=== PATIENT | female | born 2000 | race Caucasian/White ===

== ENCOUNTER 2022-03-24 15:27 | Emergency (ER) | payer BC, OTHER ==
[2022-03-24] MEDS ORDERED: morphine INJ 10 MG/ML 1ML (SYR OR VIAL) IM STA (15:35)
[2022-03-24] MEDS ORDERED: BACITRACIN OINTMENT 28 GM TUBE TOP STA (15:37)
--- NOTE | 2022-03-24 15:48 | ED Integumentary General ---
General Chief Complaint: Skin/Wound Problems Stated Complaint: RT HAND BURN Source: patient Exam Limitations: other (pain limits ability to allow examination of her hand) History of Present Illness Date Seen by Provider: Mar 24, 2022 Time Seen by Provider: 15:29 Initial Comments 29 yo female presenting with complaint of burn to right hand and fingers. She had been trying to make hot cocoa and had a ceramic cup in the microwave. She had gone to grab the cup and it burnt her hand with blisters on the fingers and hand. She is right hand dominant. She had applied milk of magnesia and wrapped in a cool dressing and ice pack. She states it is not really hurting as long as it is not exposed to the air. When exposed to the air it starts burning severely. Timing/Duration: just prior to arrival Severity: severe Location: hands (right hand) Possible Cause: other (hot cup from microwave) Modifying Factors: worse with other (exposure to air makes it worse, keeping it covered and under cool wrap helps with the pain) Associated Symptoms: blisters; No edema, No fever, No flushing, No headache, No hives, No jaundice, No malaise, No nasal congestion, No numbness, No pallor, No paresthesia, No petechiae, No sore throat, No tingling Allergies and Home Medications Allergies Coded Allergies: amoxicillin (Verified Allergy, Unknown, 03/24/22) Patient Home Medication List Home Medication List Reviewed: Yes Hydrocodone/Acetaminophen (Hydrocodone-Acetamin 5-325 mg) 5 Mg-325 Mg Tablet, 1 TAB PO Q4H PRN for PAIN-SEVERE (8-10) Prescribed by: JASE GRAY on 03/24/22 4471 Review of Systems Review of Systems Constitutional: No chills, No fever EENTM: no symptoms reported Respiratory: no symptoms reported Cardiovascular: no symptoms reported Gastrointestinal: no symptoms reported Genitourinary: no symptoms reported Musculoskeletal: see HPI Skin: see HPI Psychiatric/Neurological: Anxiety Past Ekeycho-Rebgoe-Fmzkvy Hx Patient Social History Tobacco Use?: No Use of E-Cig and/or Vaping dev: No Substance use?: No Alcohol Use?: No Pt feels they are or have been: No Immunizations Up To Date Influenza Vaccine Up-to-Date: No; Not Current First/Initial COVID19 Vaccinat: Denies Past Medical History Surgery/Hospitalization HX: ADHD, Injury to right hand from being caught with rope and horse hitch Physical Exam Vital Signs Vital Signs - First Documented 03/24/22 15:28 Temp 36.4 Pulse 104 Resp 18 B/P (MAP) 90/72 (78) Pulse Ox 100 O2 Delivery Room Air Capillary Refill : General Appearance: WD/WN, moderate distress Cardiovascular: normal peripheral pulses Extremities: normal range of motion, normal capillary refill, other (pain with palpation of fingers and hand on right side) Neurologic/Psychiatric: alert, oriented x 3 Skin: warm/dry, other (erythema and some small blisters on right hand and fingers. No areas of non-blanching skin for 3rd degree burn) Progress/Results/Core Measures Results/Orders My Orders Orders - JASE GRAY MD Morphine Injection (Morphine Injection (03/24/22 15:35) Wound Dressing-Ed (03/24/22 15:37) Bacitracin Ointment (Bacitracin Ointment (03/24/22 15:37) Rx-Hydrocodone/Apap 5-325 Mg (Rx-Vicodin (03/24/22 15:45) Medications Given in ED Current Medications Medications Dose Ordered Sig/Dalton Route Start Time Stop Time Status Last Admin Dose Admin Acetaminophen/ Hydrocodone Bitart 1 ea Q4H PRN PO 03/24/22 15:45 03/24/22 15:45 1 EA Vital Signs/I&O 03/24/22 15:28 Temp 36.4 Pulse 104 Resp 18 B/P (MAP) 90/72 (78) Pulse Ox 100 O2 Delivery Room Air Progress Progress Note : Progress Note Exam limited by patient's pain when hand and fingers were exposed to the air. Will give Morphine 10 mg IM to help with pain as she became hysterical with the hand exposed to the air. After the pain shot will clean the hand with soap and water and then apply thin layer of antibiotic ointment and clean dry dressing to fingers and hand. Have her clean the hand at least once a day and re-apply antibiotic ointment and new clean dry dressings. Change if the dressings get dirty. Use Ibuprofen 600 mg every 6 hours for pain and inflammation and Hydrocodone/Acetaminophen 5/325 mg 1 pill every 4 hours as needed for severe pain. Check with clinic this week to see how the veronica are healing and should be able to return to work next week but keep veronica covered with clean dry dressing until healed and limit use of right hand until healed. She thinks her last tetanus shot was within the last 5 years. Departure Impression Primary Impression: Second degree burn of multiple sites of hand and finger Qualified Codes: T23.291A - Burn of second degree of multiple sites of right wrist and hand, initial encounter; T23.231A - Burn of second degree of multiple right fingers (nail), not including thumb, initial encounter Additional Impression: First degree burn of right hand including fingers Qualified Codes: T23.101A - Burn of first degree of right hand, unspecified site, initial encounter; T23.131A - Burn of first degree of multiple right fingers (nail), not including thumb, initial encounter Disposition: 01 HOME, SELF-CARE Condition: Stable Departure-Patient Inst. Decision time for Depature: 15:42 Referrals: NO,LOCAL PHYSICIAN (PCP) Primary Care Physician [facility] Patient Instructions: Minor Skin Veronica ED, Acute Pain, Adult (DC) Add. Discharge Instructions: Keep dressing in place on hand and fingers to help with pain control and with healing of veronica on fingers and hand. Keep dressing clean and dry Change the dressing in the morning. Remove the dressing and clean your hand with soap and water to remove the antibiotic dressing from today. Do not pop or drain any blisters, let them heal on their own After you have washed off the ointment from the previous dressing re-apply a fresh layer of antibiotic ointment and wrap the fingers and hand with dry sterile gauze. Change the dressing once a day, and as needed if the dressing gets dirty. Try to keep your hand elevated above heart level to help limit swelling and pain. In addition to the narcotic pain medicine you may take Ibuprofen 600 mg every 6 hours to help with pain and inflammation. Check with clinic this week to help monitor healing of the veronica and continue pain medicine if needed. All discharge instructions reviewed with patient and/or family. Voiced understanding. Scripts Hydrocodone/Acetaminophen (Hydrocodone-Acetamin 5-325 mg) 5 Mg-325 Mg Tablet 1 TAB PO Q4H PRN for PAIN-SEVERE (8-10) for 4 Days, #24 TAB 0 Refills Prov: JASE GRAY MD 03/24/22 Work/School Note: Work Release Form Date Seen in the Emergency Department: Mar 24, 2022 Return to Work: Apr 01, 2022 Other Restrictions Listed Below: Keep dressing clean and dry. Limit use Right hand x 1 week JASE GRAY MD Mar 24, 2022 15:48
[2022-03-24] MEDS ORDERED: ACHD5005 PO (15:50)
[2022-03-24 15:55] VITALS: BP 90/72
== END 2022-03-24 15:55 | disposition home or self-care (01) ==
LOC: EDBD 15:29 → ER FS 15:29
DX: T23.201A Burn of second degree of right hand, unspecified site, initial encounter (principal); T23.221A Burn of second degree of single right finger (nail) except thumb, initial encounter; X19.XXXA Contact with other heat and hot substances, initial encounter; Z28.310 Unvaccinated for COVID-19
CPT/HCPCS: 99284